=== PATIENT | female | born 1980 | race Caucasian/White ===

== ENCOUNTER 2017-07-10 08:32 | Outpatient (CLI) | payer OTHER ==
[~2017-07-10 08:32] MED LIST: CEFADROXIL500 MG PO; CEFTIN250 MG PO; NEURONTIN300 MG; PEPCID40 MG PO; SPRINTEC1 TAB PO; SYNTHROID75 MCG; URIN D.S. TABLE1 TAB PO; ZOFRAN4 MG PO
== END 2017-07-10 08:44 | disposition home or self-care (01) ==
LOC: MRI 08:32
DX: M54.02 Panniculitis affecting regions of neck and back, cervical region (principal); M54.12 Radiculopathy, cervical region; M54.2 Cervicalgia
CPT/HCPCS: 72141

== ENCOUNTER 2017-10-22 14:07 | Emergency (ER) | payer OTHER ==
[~2017-10-22] VITALS: Ht 167.6 cm; Wt 104.8 kg
== END 2017-10-22 20:09 | disposition home or self-care (01) ==
LOC: ER 14:07
DX: K58.9 Irritable bowel syndrome, unspecified (principal); K59.09 Other constipation